=== PATIENT | male | born 2005 | race African-American/Black ===

== ENCOUNTER 2025-04-19 15:10 | Emergency (ER) | payer SELFPAY ==
[2025-04-19 16:11] LABS: #Basophils 0.1 thou/uL (0.0-0.2); #Eosinophils 0.1 thou/uL (0.0-0.7); #Lymphocytes 1.2 thou/uL (1.20-3.40); #Monocytes 0.5 thou/uL (0.11-0.59); #Neutrophils 3.5 thou/uL (1.40-6.50); %Basophils 1.6 % (0.0-1.0); %Eosinophils 2.1 % (0.0-10.0); %Lymphocytes 22.1 % (28.0-48.0); %Monocytes 8.3 % (0.0-4.0); %Neutrophils 65.9 % (31.0-61.0); Hematocrit 43.2 % (42.0-52.0); Hemoglobin 14.9 g/dL (14.0-18.0); Mean Corpuscular Hemoglobin 28.0 pg (25.0-35.0); Mean Corpuscular Volume 81.4 fl (78.0-98.0); Platelet Count 293 10x3/uL (130-400); Red Blood Cell (RBC) Count 5.31 mill/uL (4.00-5.20); White Blood Cell (WBC) Count 5.4 10x3/uL (4.8-10.8)
[2025-04-19 16:25] LABS: Anion Gap 15 mmol/L (10-20); BUN (Urea Nitrogen) 12 mg/dL (8.4-21.0); CK (CPK) 312 U/L (30-200); Calc. Creatinine Clearance 0 mL/min (70-130); Calcium 9.5 mg/dL (7.8-10.44); Carbon Dioxide 25 mmol/L (22-29); Chloride 105 mmol/L (98-107); Glucose 112 mg/dL (70-105); Potassium 3.5 mmol/L (3.5-5.1); Sodium 141 mmol/L (136-145)
== END 2025-04-19 17:36 | disposition home or self-care (01) ==
LOC: NAV ERS 15:10
DX: R42 Dizziness and giddiness (principal); R53.83 Other fatigue; R29.700 NIHSS score 0; G89.29 Other chronic pain; M54.50 Low back pain, unspecified; M79.604 Pain in right leg
CPT/HCPCS: 80048; 82550; 85025; 93005; 99284; J7030

== ENCOUNTER 2025-05-06 17:16 | Emergency (ER) | payer SELFPAY | END 2025-05-06 18:37 | disposition home or self-care (01) | LOC: NAV ERS 17:16 | DX: S80.12XA Contusion of left lower leg, initial encounter (principal); L02.214 Cutaneous abscess of groin; W22.8XXA Striking against or struck by other objects, initial encounter; Y99.0 Civilian activity done for income or pay | CPT/HCPCS: 99283 ==